=== PATIENT | female | born 1950 | race Caucasian/White ===

== ENCOUNTER → 2024-01-24 16:53 | Outpatient (REF) | payer MEDICARE, OTHER, SELFPAY | LOC: RAD 16:53 | PROVIDERS: ATTENDING PHYSICIAN Family Medicine | DX: S99.921A Unspecified injury of right foot, initial encounter (principal) | CPT/HCPCS: 73630 ==

== ENCOUNTER → 2024-04-10 10:26 | Outpatient (REF) | payer MEDICARE, OTHER, SELFPAY | LOC: WDC 10:26 | PROVIDERS: ATTENDING PHYSICIAN Obstetrics & Gynecology; FAMILY PHYSICIAN Family Medicine | DX: Z12.31 Encounter for screening mammogram for malignant neoplasm of breast (principal) | CPT/HCPCS: 77063; 77067 ==

== ENCOUNTER → 2024-06-26 11:15 | Outpatient (REF) | payer MEDICARE, OTHER, SELFPAY | LOC: RAD 11:15 | PROVIDERS: ATTENDING PHYSICIAN Family Medicine; REFERRING PHYSICIAN Obstetrics & Gynecology | DX: N95.1 Menopausal and female climacteric states (principal); Z78.0 Asymptomatic menopausal state | CPT/HCPCS: 77080 ==

== ENCOUNTER → 2025-04-07 13:11 | Outpatient (REF) | payer MEDICARE, OTHER, SELFPAY | LOC: WDC 13:11 | PROVIDERS: ATTENDING PHYSICIAN Obstetrics & Gynecology; FAMILY PHYSICIAN Family Medicine | DX: Z12.31 Encounter for screening mammogram for malignant neoplasm of breast (principal) | CPT/HCPCS: 77063; 77067 ==